=== PATIENT | male | born 1995 | race Caucasian/White ===

== ENCOUNTER 2018-10-05 00:19 | Emergency (ER) | payer SELFPAY ==
[~2018-10-05] VITALS: Ht 172.7 cm; Wt 81.6 kg
--- NOTE | 2018-10-05 00:33 | NUR ---
Pt ambulated to bed 6.
[2018-10-05 00:44] VITALS: BP 116/82
--- NOTE | 2018-10-05 00:50 | NUR ---
23 Y MALE BIB MOTHER C/O ABSCESS ACROSS BILATERAL ARMS AND FOREHEAD X 1 WEEK. PT STATES HE WAS DIAGNOSED AT [facility] FOR CELLULITIS. WAS PRESCRIBED KEFLEX. PER PT, HE WORKS IN [employer] AND EVERY TIME HE GETS A CUT IT TURNS INTO AN OPEN WOUND. ABSCESS ON FOREHEAD 2CM BY 1.5 CM, ABSCESS ON FOREARM 2CM BY 2CM. +REDNESS, +SWELLING. VSS. [id number]. BED IS DOWN, LOCKED, BED RAIL X 1, ERMD NOTIFIED. PMH-NONE
--- NOTE | 2018-10-05 00:51 | NUR ---
DR SPENCER AT BEDSIDE
[2018-10-05 00:54] VITALS: BP 116/82
--- NOTE | 2018-10-05 00:54 | NUR ---
DR SPENCER DISCHARGED PT
--- NOTE | 2018-10-05 00:54 | NUR ---
Patient discharged with v/s stable. Written and verbal after care instructions given and explained. Patient alert, oriented and verbalized understanding of instructions. Ambulatory with steady gait. All questions addressed prior to discharge. ID band removed. Patient advised to follow up with PMD. Rx of KEFLEX, BACTRIM given. Patient educated on indication of medication including possible reaction and side effects. Opportunity to ask questions provided and answered.
== END 2018-10-05 00:54 | disposition home or self-care (01) ==
LOC: MED 00:19
DX: L03.114 Cellulitis of left upper limb (principal); L03.115 Cellulitis of right lower limb; L03.211 Cellulitis of face
CPT/HCPCS: 99283